=== PATIENT | male | born 1965 | race African-American/Black ===

== ENCOUNTER 2017-10-05 06:11 | Observation (INO) ==
[2017-10-05] MEDS ORDERED: SODIUM CHLORIDE 0.9% 2,000 ML IV STA (06:33)
[2017-10-05 07:04] LABS: Basophils # 0.1 10*3/uL (0.0-0.2); Basophils % 1.6 % (0.0-0.8); Eosinophils # 0.1 10*3/uL (0.0-0.87); Eosinophils % 3.3 % (0.00-10.9); Hematocrit 40.2 VOL% (42.0-52.0); Immature Granulocytes % 0.5 %; Immature Granulocytes Absolute 0.02 #; Lymphocytes # 1.3 10*3/uL (1.4-4.0); Lymphocytes % 35.2 % (21.2-54.2); Mean Corpuscular HGB Conc 32.3 GM/DL (32-36); Mean Corpuscular Hemoglobin 31 PG (27-34); Mean Corpuscular Volume 95.5 FL (87-102); Mean Platelet Volume 8.3 FL (9.6-12.0); Monocytes # 0.7 10*3/uL (0.11-0.8); Monocytes % 19.7 % (1.7-12.7); Neutrophils # 1.5 10*3/uL (1.4-7.4); Neutrophils % 39.7 % (38.7-73.9); Platelet Count 204 T/CUMM (130-400); Red Blood Count 4.21 MC/CUMM (3.8-5.5); Red Cell Distribution Width 11.9 % (9.3-17.3); White Blood Count 3.7 T/CUMM (4-12)
[2017-10-05 07:29] LABS: Albumin 3.8 G/DL (3.4-5.0); Bilirubin,Total 0.8 MG/DL (0.2-1.0); Calcium 8.9 MG/DL (8.5-10.1); Osmolality,Calculated 270.8 MOS/KG (273-304); Potassium 4.1 MMOL/L (3.5-5.1); Total Protein 7.3 G/DL (6.4-8.3)
[2017-10-05 07:37] LABS: Hypochromasia 1+; Lymphocytes 37 % (20-55); Ovalocytes Slight; Platelet Estimate Adequate; Segmented Neutrophils 44 % (50-85); Total Cells Counted 100
[2017-10-05 08:10] LABS: Apearance,Urine CLEAR (Clear); Bilirubin,Urine Negative (Negative); Blood, Urine Negative (Negative); Glucose,Urine (UA) Negative (Negative); Ketones,Urine Negative (Negative); Mucus,Urine Occasional /LPF (Occasional); Nitrite,Urine Negative (Negative); Protein,Urine Negative; RBC,Urine 1 /HPF (0-4); Urine Color Yellow (Yellow); Urine Specific Gravity 1.016 (1.001-1.035); WBC,Urine 1 /HPF (0-6)
[2017-10-05 08:17] LABS: Barbiturates Screen,Urine Negative (Negative); Benzodiazepines Screen,Urine Negative (Negative); Cannabinoid Screen,Urine Positive (Negative); Opiate Screen,Urine Negative (Negative); Phencyclidine Screen,Urine Negative (Negative)
[2017-10-05] MEDS ORDERED: LABETALOL 20 MG/4 ML SYRINGE IV PRN (10:34)
[2017-10-05] MEDS ORDERED: LORazepam 1 MG TABLET PO PRN (10:43)
[2017-10-06 04:41] LABS: Basophils % 0.9 % (0.0-0.8); Eosinophils # 0.1 10*3/uL (0.0-0.87); Eosinophils % 3.2 % (0.00-10.9); Hematocrit 43.5 VOL% (42.0-52.0); Hemoglobin 14.6 GM/DL (14.0-18.0); Immature Granulocytes % 0.2 %; Immature Granulocytes Absolute 0.01 #; Lymphocytes % 45.5 % (21.2-54.2); Mean Corpuscular HGB Conc 33.6 GM/DL (32-36); Mean Corpuscular Hemoglobin 31 PG (27-34); Mean Corpuscular Volume 93.5 FL (87-102); Mean Platelet Volume 8.9 FL (9.6-12.0); Monocytes # 0.8 10*3/uL (0.11-0.8); Monocytes % 16.9 % (1.7-12.7); Neutrophils # 1.5 10*3/uL (1.4-7.4); Neutrophils % 33.3 % (38.7-73.9); Platelet Count 216 T/CUMM (130-400); Red Blood Count 4.65 MC/CUMM (3.8-5.5); Red Cell Distribution Width 11.5 % (9.3-17.3); White Blood Count 4.4 T/CUMM (4-12)
[2017-10-06 04:50] LABS: PT Patient Result 10.3 SECS
[2017-10-06 05:04] LABS: Atypical Lymphocytes Few; Band Neutrophils 4 % (0-10); Eosinophils 1 % (0-10); Hypochromasia Slight; Lymphocytes 40 % (20-55); Segmented Neutrophils 36 % (50-85); Total Cells Counted 100
[2017-10-06 05:05] LABS: Platelet Estimate Normal
[2017-10-06 05:16] LABS: Risk Ratio 1.6; VLDL CHOLESTEROL 15.8 MG/DL
[2017-10-06 05:17] LABS: Albumin 3.2 G/DL (3.4-5.0); Bilirubin,Total 1.9 MG/DL (0.2-1.0); Calcium 8.7 MG/DL (8.5-10.1); Osmolality,Calculated 263.4 MOS/KG (273-304); Potassium 3.8 MMOL/L (3.5-5.1); Total Protein 6.7 G/DL (6.4-8.3)
[2017-10-06 05:25] LABS: Folate 6.3 NG/ML (5.4-24.0)
[2017-10-06] MEDS ORDERED: hydroCHLOROthiazide 12.5 MG CAPSULE PO SCH (09:00)
[2017-10-06] MEDS ORDERED: FOLIC ACID 1 MG TABLET PO SCH (09:00)
[2017-10-06] MEDS ORDERED: THIAMINE 100 MG TABLET PO SCH (09:00)
[2017-10-06] MEDS ORDERED: MULTIVITAMIN (CENTRUM) TABLET PO SCH (09:00)
[2017-10-06] MEDS ORDERED: ASPIRIN 325 MG TABLET PO SCH (09:00)
[2017-10-06 16:34] VITALS: BP 158/90
[2017-10-06] MEDS ORDERED: ATORVASTATIN 10 MG TABLET PO SCH (21:00)
== END 2017-10-06 17:56 | disposition home or self-care (01) ==
LOC: N.EDINP 06:11 → N.ED 06:11 → N.3E 15:12
PROVIDERS: ADMIT Internal Medicine; ATTEND Internal Medicine

== ENCOUNTER 2019-02-07 20:28 | Observation (INO) ==
[2019-02-07 21:33] LABS: Basophils % 0.5 % (0.0-0.8); Eosinophils % 0.3 % (0.00-10.9); Hematocrit 46.3 VOL% (42.0-52.0); Immature Granulocytes % 0.7 %; Immature Granulocytes Absolute 0.05 #; Lymphocytes # 1.4 10*3/uL (1.4-4.0); Lymphocytes % 18.6 % (21.2-54.2); Mean Corpuscular HGB Conc 32.4 GM/DL (32-36); Mean Corpuscular Volume 97.5 FL (87-102); Mean Platelet Volume 8.3 FL (9.6-12.0); Monocytes % 11.4 % (1.7-12.7); Neutrophils % 68.5 % (38.7-73.9); Platelet Count 231 T/CUMM (130-400); Red Blood Count 4.75 MC/CUMM (3.8-5.5); Red Cell Distribution Width 11.9 % (9.3-17.3); White Blood Count 7.4 T/CUMM (4-12)
[2019-02-07 21:41] LABS: Apearance,Urine CLOUDY (Clear); Bilirubin,Urine Negative (Negative); Blood, Urine Negative (Negative); Calcium Oxalate Crystals,Urine Occasional /HPF (Few); Glucose,Urine (UA) Negative (Negative); Hyaline Casts,Urine 66 /LPF (0-3); Ketones,Urine 5 mg/dL (Negative); Mucus,Urine Few /LPF (Occasional); Nitrite,Urine Negative (Negative); Protein,Urine 100 MG/DL; Squamous Epithelial Cell,Urine Occasional /HPF (0-10); Urine Color Amber (Yellow); Urine Specific Gravity 1.018 (1.001-1.035); WBC,Urine 1 /HPF (0-6)
[2019-02-07 21:47] LABS: Barbiturates Screen,Urine Negative (Negative); Benzodiazepines Screen,Urine Negative (Negative); Cannabinoid Screen,Urine Positive (Negative); Opiate Screen,Urine Negative (Negative); Phencyclidine Screen,Urine Negative (Negative)
[2019-02-07 21:56] LABS: Albumin 4.6 G/DL (3.4-5.0); Bilirubin,Total 1.4 MG/DL (0.2-1.0); Calcium 10.2 MG/DL (8.5-10.1); Osmolality,Calculated 265.7 MOS/KG (273-304); Total Protein 8.5 G/DL (6.4-8.3)
[2019-02-07] MEDS ORDERED: SODIUM CHLORIDE 0.9% 2,000 ML IV STA (23:11)
[2019-02-07] MEDS ORDERED: DIAZEPAM 5 MG TABLET PO STA (23:11)
[2019-02-07] MEDS ORDERED: ONDANSETRON 4 MG/2 ML VIAL IV STA (23:12)
[2019-02-08] MEDS ORDERED: ONDANSETRON 4 MG/2 ML VIAL IV PRN (00:34)
[2019-02-08] MEDS ORDERED: ACETAMINOPHEN 325 MG TABLET PO PRN (00:34)
[2019-02-08] MEDS ORDERED: LORazepam 2 MG/1 ML VIAL IV PRN (01:48)
[2019-02-08] MEDS: SODIUM CHLORIDE 0.9% 1,000 ML IV SCH ×3 (02:24→18:47)
[2019-02-08] MEDS: ENOXAPARIN 40 MG/0.4 ML SYRINGE SUBCUT SCH ×2 (02:25→20:36)
[2019-02-08 06:41] LABS: Basophils % 0.4 % (0.0-0.8); Eosinophils # 0.1 10*3/uL (0.0-0.87); Eosinophils % 1.9 % (0.00-10.9); Hematocrit 40.1 VOL% (42.0-52.0); Immature Granulocytes % 0.4 %; Immature Granulocytes Absolute 0.03 #; Lymphocytes % 30.4 % (21.2-54.2); Mean Corpuscular HGB Conc 32.4 GM/DL (32-36); Mean Platelet Volume 8.5 FL (9.6-12.0); Monocytes % 17.3 % (1.7-12.7); Neutrophils % 49.6 % (38.7-73.9); Platelet Count 196 T/CUMM (130-400); Red Blood Count 4.09 MC/CUMM (3.8-5.5); Red Cell Distribution Width 11.7 % (9.3-17.3); White Blood Count 6.7 T/CUMM (4-12)
[2019-02-08 07:03] LABS: Albumin 3.4 G/DL (3.4-5.0); Calcium 8.6 MG/DL (8.5-10.1); Osmolality,Calculated 276.8 MOS/KG (273-304); Total Protein 6.4 G/DL (6.4-8.3)
[2019-02-08 07:04] LABS: Eosinophils 1 % (0-10); Lymphocytes 30 % (20-55); Segmented Neutrophils 53 % (50-85); Total Cells Counted 100
[2019-02-08 07:05] LABS: Platelet Estimate Adequate
[2019-02-08 07:06] LABS: Atypical Lymphocytes Few
[2019-02-08] MEDS: THIAMINE 100 MG TABLET PO SCH (08:19)
[2019-02-08] MEDS: PANTOPRAZOLE 40 MG TABLET PO SCH (08:19)
[2019-02-08] MEDS: MULTIVITAMIN (CENTRUM) TABLET PO SCH (08:19)
[2019-02-08] MEDS: FOLIC ACID 1 MG TABLET PO SCH (08:20)
[2019-02-08] MEDS ORDERED: SIMVASTATIN 10 MG TABLET PO SCH (21:00)
[2019-02-09] MEDS: SODIUM CHLORIDE 0.9% 1,000 ML IV SCH (02:51)
[2019-02-09 05:44] LABS: Basophils # 0.1 10*3/uL (0.0-0.2); Basophils % 1.2 % (0.0-0.8); Eosinophils # 0.1 10*3/uL (0.0-0.87); Eosinophils % 3.3 % (0.00-10.9); Hematocrit 39.5 VOL% (42.0-52.0); Hemoglobin 12.6 GM/DL (14.0-18.0); Immature Granulocytes % 0.5 %; Immature Granulocytes Absolute 0.02 #; Lymphocytes # 1.8 10*3/uL (1.4-4.0); Lymphocytes % 43.4 % (21.2-54.2); Mean Corpuscular HGB Conc 31.9 GM/DL (32-36); Mean Corpuscular Volume 99.2 FL (87-102); Mean Platelet Volume 8.8 FL (9.6-12.0); Monocytes % 17.5 % (1.7-12.7); Neutrophils % 34.1 % (38.7-73.9); Platelet Count 197 T/CUMM (130-400); Red Blood Count 3.98 MC/CUMM (3.8-5.5); Red Cell Distribution Width 11.6 % (9.3-17.3); White Blood Count 4.2 T/CUMM (4-12)
[2019-02-09 06:08] LABS: Calcium 8.7 MG/DL (8.5-10.1); Osmolality,Calculated 275.5 MOS/KG (273-304)
[2019-02-09 06:23] LABS: Band Neutrophils 3 % (0-10); Eosinophils 3 % (0-10); Hypochromasia Slight; Lymphocytes 42 % (20-55); Platelet Estimate Normal; Segmented Neutrophils 32 % (50-85); Total Cells Counted 100
[2019-02-09] MEDS ORDERED: FOLIC ACID 1 MG TABLET PO SCH (09:00)
[2019-02-09] MEDS: MULTIVITAMIN (CENTRUM) TABLET PO SCH (09:08)
[2019-02-09] MEDS: THIAMINE 100 MG TABLET PO SCH (09:08)
[2019-02-09] MEDS: PANTOPRAZOLE 40 MG TABLET PO SCH (09:09)
[2019-02-09] MEDS ORDERED: NAPROXEN 250 MG TABLET PO PRN (10:30)
[2019-02-09 11:18] LABS: Hepatitis B Core IgM Quant 0.12 Index; Hepatitis B Surface Ag Quant 0.19 Index; Hepatitis B Surface Ag Result Negative (Negative); Hepatitis C Virus Ab Quant 0.02 Index; Hepatitis C Virus Ab Result Negative (Negative)
[2019-02-09] MEDS: FOLIC ACID 1 MG TABLET PO SCH (12:19)
[2019-02-09 14:07] VITALS: BP 160/84
== END 2019-02-09 14:45 | disposition home or self-care (01) ==
LOC: N.EDINP 20:28 → N.ED 20:28 → SUPCPDRO 02-08 00:34 → N.4E 02-08 01:06
PROVIDERS: ADMIT Internal Medicine; ATTEND Internal Medicine